=== PATIENT | female | born 1960 ===

== ENCOUNTER 2016-07-16 18:58 | Emergency (ER) | payer BC ==
--- NOTE | ~2016-07-16 | CT114 ---
[facility] A Service of [facility] RADIOLOGY TEXT RESULTS PATIENT: LAURENT BALBUENA LOCATION: [facility] : 58 UNIT #: [id number] AGE: [address]: Viraj Barton DO SEX: F ORDER DR: [id number] [facility] [address] [place], [place] [address] [id number] E MR#: [id number] Acc #: [id number] NAME: LAURENT BALBUENA : 1960 SEX: F STUDY DATE/TIME: 07/17/2016 0:59 UNIT: SUZY ROOM: STUDY DESCRIPTION: CT Soft Tissue Neck W Cont Attending Physician: Viraj Barton D.O. Ordering Physician: Viraj Barton D.O. Primary Care Physician: No Primary Care Physician MEDICAL IMAGING REPORT This report is preliminary unless electronic signature is present EXAM CT neck soft tissues with contrast. INDICATIONS Left-sided neck swelling and pain today. PROCEDURE Contrast-enhanced CT of the neck. This CT exam was performed with one or more of the following radiation dose reduction techniques: automatic exposure control, adjustment of mA and/or kV according to patient size, and iterative reconstruction. COMPARISON None. FINDINGS There is soft tissue fullness in the region of the epiglottis. Airway appears narrowed at this level, but this may be related to phase of swallowing. There is questionable slight asymmetric prominence of the left parotid gland compared with the right. No drainable fluid collection. No abnormally enlarged cervical nodes. Submandibular glands are unremarkable and the thyroid gland is unremarkable. Emphysema. No aggressive appearing bone lesion. IMPRESSION 1. Soft tissue fullness in the region of the epiglottis. Could be inflammatory or a true mass. Recommend direct visualization. 2. Possible slight asymmetric prominence of the left parotid gland compared with the right. No drainable fluid collection. Correlate with any clinical suspicion for parotiditis. Dictated by... Taiwo Velez M.D. [facility] A Service of [facility] RADIOLOGY TEXT RESULTS PATIENT: LAURENT BALBUENA LOCATION: [facility] : 58 UNIT #: [id number] AGE: [address]: Viraj Barton DO SEX: F ORDER DR: THIS IS AN ELECTRONICALLY VERIFIED REPORT Taiwo Velez M.D. at 07/21/2016 7:23 AM GIACOMO/blanca TD: 07/17/2016 09:57 JOB #: [id number] MEDICAL IMAGING REPORT Page 1 of 1 COPY
[2016-07-16 23:33] LABS: BASOPHIL# 0.1 X10e3 (0-0.3); BASOPHIL% 0.9 % (0-2.5); EOSINOPHIL# 0.3 X10e3 (0-0.7); EOSINOPHIL% 4.2 % (0.0-7.0); HEMATOCRIT 42.8 % (35.0-45.0); LYMPHOCYTE# 2.4 X10e3 (1.0-3.5); LYMPHOCYTE% 29.7 % (17.0-45.0); MEAN CELL VOLUME 90.6 FL (83-96); MEAN CORPUSCULAR HEMOGLOBIN 29.5 PG (28-34); MEAN CORPUSCULAR HGB CONC 32.6 g/dL (30-36); MEAN PLATELET VOLUME 8.7 FL (6.5-11.5); MONOCYTE# 0.6 X10e3 (0-1.0); MONOCYTE% 7.8 % (3.0-12.0); NEUTROPHIL# 4.6 X10e3 (1.5-7.1); NEUTROPHIL% 57.4 % (40-75); PLATELET COUNT 193 X10e3 (140-420); RED BLOOD COUNT 4.72 X10e (3.90-5.30); RED CELL DISTRIBUTION WIDTH 13.1 % (11.0-15.5); WHITE BLOOD COUNT 8.1 X10e3 (4.0-10.5)
[2016-07-16 23:35] LABS: DIFF IND NO
[2016-07-17 00:01] LABS: CALCIUM SERUM 9.5 mg/dL (8.4-10.2); CREATININE SERUM 0.8 mg/dL (0.6-1.4); GLOM FILT RATE Estimated 81.9 mL/min (>60)
== END 2016-07-17 03:00 | disposition left against medical advice (07) ==
LOC: CED 18:58
PROVIDERS: Emergency Medicine
DX: J05.10 Acute epiglottitis without obstruction (principal)
CPT/HCPCS: 70491; 80048; 85025; 99284; Q9967